=== PATIENT | female | born 1985 | race Caucasian/White ===

== ENCOUNTER 2017-08-14 08:25 | Day surgery (SDC) | payer OTHER | END 2017-08-14 14:30 | disposition home or self-care (01) | LOC: AMB-ENDOS 08:25 | DX: K92.1 Melena (principal); Z12.11 Encounter for screening for malignant neoplasm of colon; Z80.0 Family history of malignant neoplasm of digestive organs ==

== ENCOUNTER 2020-10-25 06:48 | Day surgery (SDC) | payer OTHER | END 2020-10-25 14:35 | disposition home or self-care (01) | LOC: CIR.AMB 06:48 | PROVIDERS: ATTEND Obstetrics & Gynecology | DX: N84.0 Polyp of corpus uteri (principal); Z20.822 Contact with and (suspected) exposure to COVID-19 ==